=== PATIENT | female | born 1990 | race Caucasian/White ===

== ENCOUNTER 2018-05-14 18:26 | Emergency (ER) | payer OTHER ==
--- NOTE | 2018-05-14 18:42 | EDPHY ---
H & P Time Seen by Provider: 05/14/18 18:33 HPI/ROS: CHIEF COMPLAINT: Left forearm laceration HISTORY OF PRESENT ILLNESS: 27-year-old female presents with left forearm laceration. She was trail running just prior to arrival tripped and fell over a rock and landed onto her left arm. Sustained a laceration. No other injuries. No pain with range of motion of elbow or wrist. Tetanus is up-to- date. ROS: No numbness, weakness, excessive bleeding, syncopal episode, other injury. Past Medical/Surgical History: Denies Smoking Status: Never smoked Physical Exam: Alert and oriented, pleasant Extremities: Left forearm-3.5 cm on the proximal left forearm, range of motion of the wrist and elbow without pain Neuro: Motor and sensory intact Vascular: Capillary refill brisk distally Constitutional: Initial Vital Signs Temperature (C) 36.8 C 05/14/18 18:29 Heart Rate 81 05/14/18 18:29 Respiratory Rate 16 05/14/18 18:29 Blood Pressure 121/85 H 05/14/18 18:29 O2 Sat (%) 98 05/14/18 18:29 O2 Delivery Mode Room Air Allergies/Adverse Reactions: Penicillins Allergy (Intermediate, Verified 05/14/18 18:28) Hives Home Medications: Medication Instructions Recorded NK [No Known Home Meds] 05/14/18 Medical Decision Making Procedures: Procedure: Laceration repair. The 3.5 cm laceration on the left forearm was anesthetized using lidocaine. The wound was irrigated, draped and explored to its base with a gloved finger. There were no deep structures involved. No foreign body palpable. The wound was repaired with 5 0 nylon. The wound repair was simple. Departure - Departure Disposition: Home, Routine, Self-Care Clinical Impression: Laceration Condition: Good Instructions: Laceration (ED), Care For Your Stitches (ED) Additional Instructions: Return for suture removal in 10 days. Referrals: NONE *PRIMARY CARE P,. [Primary Care Provider] - As per Instructions
[2018-05-14 19:31] VITALS: BP 132/87
== END 2018-05-14 19:30 | disposition home or self-care (01) ==
PROC: 0HQEXZZ Repair Left Lower Arm Skin, External Approach (ICD-10-PCS; principal; 2018-05-14)
DX: S51.812A Laceration without foreign body of left forearm, initial encounter (principal); W01.0XXA Fall on same level from slipping, tripping and stumbling without subsequent striking against object, initial encounter; Y99.8 Other external cause status; Y93.02 Activity, running